=== PATIENT | female | born 1955 | race Caucasian/White ===

== ENCOUNTER → 2016-05-23 | Outpatient (CLI) | payer OTHER, MEDICAID ==
--- NOTE | 2016-05-25 10:59 | DX ---
DEXA Bone Densitometry Technique: DEXA scan was performed on [employer] Discovery W Bone Densitometer Indication: Prior wrist fracture Comparator Study: September 2014 Results: Lumbar Spine BMD: 0.726 T-score: -2.6 Total Hip (Right) BMD: 0.714 T-score: -1.9 Femoral Neck (Right) BMD: 0.639 T-score: -1.9 Total Hip (Left) BMD: 0.668 T-score: -2.2 Femoral Neck (Left) BMD: 0.596 T-score: -2.3 CONCLUSION: Osteoporosis ADDITIONAL COMMENTS: By FRAX calculation, the estimated 10 year risk of any osteoporotic fracture is 14%. The estimated 10 year risk of hip fracture is 2.6%. This patient meets the National Osteoporosis Foundation guidelines for pharmacologic treatment based on T score less than -2.5 in the lumbar spine region. Recommend further treatment to prevent fractures and increased bone mineral density. Consider repeating the study in 2 years NOTE: The risk of osteoporotic fractures increases approximately twofold for each 1.0 SD decrease in T-score. The T-score represents the standard deviations from a young normal, same sex, reference po pulation. Low bone density is not the only risk factor for fracture. Clinical factors to consider include fall risk, previous osteoporotic fractures, family history of fractures, smoking, and low body weight. Patients who have an unexpectedly low BMD may need to be evaluated for secondary causes of low bone m ineral density. In comparing the present study to a prior study, lack of a significant increase or decrease in BMD ma y signify efficacy of the patient's present treatment. Bone mineral density measurements performed with densitometers produced by different manufacturers ar e not comparable. For the most reproducible BMD measurement, subsequent exams should be performed on the same densitometer.
== END ==
LOC: BMCIMAGING 10:04
PROVIDERS: ATTEND Family Medicine
DX: Z13.820 Encounter for screening for osteoporosis (principal); M81.0 Age-related osteoporosis without current pathological fracture

== ENCOUNTER → 2016-06-19 | Outpatient (CLI) | payer OTHER, MEDICAID | LOC: BMCIMAGING 11:13 | PROVIDERS: ATTEND Family Medicine | DX: M47.896 Other spondylosis, lumbar region (principal); M43.16 Spondylolisthesis, lumbar region; M51.36 Other intervertebral disc degeneration, lumbar region ==

== ENCOUNTER 2017-10-30 07:36 | Emergency (ER) | payer OTHER, MEDICAID ==
[2017-10-30 07:45] VITALS: BP 144/81
--- NOTE | 2017-10-30 08:00 | EDPHY ---
H & P Stated Complaint: lost balance fell 2 days ago and hit head/cracked tooth/lac to l elbow Time Seen by Provider: 10/30/17 08:00 - Personal History Current Tetanus/Diphtheria Vaccine: Yes - Medical/Surgical History Hx Asthma: No Hx Chronic Respiratory Disease: No Hx Diabetes: No Hx Cardiac Disease: No Hx Renal Disease: No Hx Cirrhosis: No Hx Alcoholism: No Hx HIV/AIDS: No Hx Splenectomy or Spleen Trauma: No Other PMH: PMH-BIPOLAR, HYPOTHYROID, SCHIZOPHRENIA W/ PARANOIA - Social History Smoking Status: Former smoker Constitutional: Initial Vital Signs Temperature (C) 36.7 C 10/30/17 07:41 Heart Rate 94 10/30/17 07:41 Respiratory Rate 18 10/30/17 07:41 Blood Pressure 144/81 H 10/30/17 07:41 O2 Sat (%) 96 10/30/17 07:41 O2 Delivery Mode Room Air Allergies/Adverse Reactions: No Known Allergies Allergy (Verified 10/30/17 07:39) Home Medications: Medication Instructions Recorded Calcium Carbonate [Oyster Shell 500 mg PO DAILY 03/02/15 Calcium 500 mg (*)] Herbals/Supplements -Info Only 1 ea PO DAILY 03/02/15 LORazepam [Ativan (*)] 1 mg PO BID PRN 03/02/15 Levothyroxine [Synthroid 88 mcg 88 mcg PO DAILY06 03/02/15 (*)] OLANZapine [Zyprexa] 20 mg PO HS 03/02/15 PARoxetine HCL [Paxil 30mg (*)] 30 mg PO HS 03/02/15 Simvastatin [Zocor] 20 mg PO HS 03/02/15 Aspirin [Aspirin 81mg (*)] 81 mg PO DAILY #0 tab 03/04/15 Penicillin VK 10/30/17 Medical Decision Making ED Course/Re-evaluation: CHIEF COMPLAINT: Fall, left arm laceration HISTORY OF PRESENT ILLNESS: The patient is a 62 y/o female with a history of bipolar disorder and schizophrenia paranoia complaining of hitting her head, cracking her tooth, and cutting her left elbow secondary to losing her balance and falling 2 days ago. Yesterday she saw her dentist who diagnosed her with a cracked and chipped tooth. She will followup with her dentist next week for an extraction. Today her friend was visiting her and became concerned about the cut to the patient's elbow. REVIEW OF SYSTEMS: A 10 point review of systems was performed and is negative with the exception of the elements mentioned in the history of present illness. PHYSICAL EXAM: HR, BP, O2 Sat, RR. Temp noted General Appearance: Alert, well hydrated, appropriate, and non-toxic appearing. Head: Atraumatic without scalp tenderness or obvious injury Eyes: Pupils equal, round, reactive to light and accommodation, EOMI, no trauma , no injection. Ears: Clear bilaterally, no perforation, normal landmarks Nose: Abrasion over nose. Atraumatic, no rhinorrhea, clear. Mouth: Throat: There is no erythema or exudates, no lesions, normal tonsils, mucus membranes moist. Neck: Supple, nontender, no lymphadenopathy. Respiratory: No retractions, no distress, no wheezes, and no accessory muscle use. Lungs are clear to auscultation bilaterally. Cardiovascular: Regular rate and rhythm, no murmurs, rubs, or gallops. Bilateral carotid, radial, dorsalis pedis, and posterior tibial pulses intact. Good capillary refill all extremities. Gastrointestinal: Abdomen is soft, nontender, non-distended, no masses, no rebound, no guarding, no peritoneal signs. Musculoskeletal: Skin tear to left elbow. Normal active ROM of all extremities. Neurological: Alert, appropriate, and interactive. Nonfocal neuro. Skin: No rashes, good turgor, no nodules on palpation. Past medical history: Bipolar disorder, schizophrenia with paranoia, hypothyroid Past surgical history: Denies Family history: Denies Social history: Friend at bedside, lives in [place], single, not employed DIFFERENTIAL DIAGNOSIS: The differential diagnosis for the patient's facial and left arm trauma included but was not limited to dental trauma, laceration, abrasion, fracture, contusion. MEDICAL DECISION MAKING: The patient is a 62 y/o female with a history of bipolar disorder and schizophrenia paranoia presenting with cracking her tooth and cutting her left elbow secondary to losing her balance and falling 2 days ago. On exam she has abrasions to her face, minor dental trauma, and a skin tear to her left elbow. Laboratory and imaging studies are not indicated at this time. Her skin tear will be cleaned and bandaged. The skin tear will not require a suture repair. Reassessed patient and discussed return precautions. She is comfortable wit this plan. Departure - Departure Disposition: Home, Routine, Self-Care Clinical Impression: Abrasion Skin tear of elbow without complication Qualifiers: Encounter type: initial encounter Laterality: left Qualified Code(s): S51.012A - Laceration without foreign body of left elbow, initial encounter Condition: Good Instructions: Acute Dental Trauma (ED), Abrasion (ED), Skin Tear (ED) Additional Instructions: 1. Keep wound clean and wash gently with soap and water. 2. Follow up with your dentist regarding your dental trauma. 3. Follow up with your primary care provider in 72 hours for unimproved symptoms. 4. Return to the Emergency Department for fever, redness, discharge from wound, increasing pain or other worsening of condition. Referrals: Nini Valle MD [Primary Care Provider] - As per Instructions Report Scribed for: Claudio Chávez Report Scribed by: Alla Mcfarland Date of Report: 10/30/17 Time of Report: 08:02
== END 2017-10-30 08:28 | disposition home or self-care (01) ==
DX: S51.012A Laceration without foreign body of left elbow, initial encounter (principal); S00.31XA Abrasion of nose, initial encounter; Z79.82 Long term (current) use of aspirin; Z87.891 Personal history of nicotine dependence; W01.198A Fall on same level from slipping, tripping and stumbling with subsequent striking against other object, initial encounter